=== PATIENT | male | born 1955 | race Caucasian/White ===

== ENCOUNTER → 2016-07-22 | Outpatient (CLI) | payer OTHER ==
[~2016-07-22] MED LIST: ACTOS30 MG PO; HYDROCODONE BIT1 T11 PO; LIPITOR10 MG PO; METFORMIN500 MG PO; MOTRIN800 MG PO
== END | disposition home or self-care (01) ==
LOC: RAD 15:57
DX: Z01.818 Encounter for other preprocedural examination (principal); J81.1 Chronic pulmonary edema; R06.00 Dyspnea, unspecified; Z96.642 Presence of left artificial hip joint

== ENCOUNTER → 2017-03-26 | Outpatient (CLI) | payer OTHER ==
[~2017-03-26] MED LIST changes: +ASPIRIN81 M1 PO; +COREG6.25 MG PO; +ENTRESTO 49 MG1 EACH PO; +INVOKANA300 M1 PO; +JANUVIA100 MG PO; +Motrin,Rufen800 MG PO
[2017-03-26 13:09] LABS: ACT PARTIAL THROMBO TIME 22.5 SECONDS (20.8-31.5)
== END ==
LOC: LAB 10:14
PROVIDERS: Orthopaedic Surgery
DX: M16.12 Unilateral primary osteoarthritis, left hip (principal); R79.1 Abnormal coagulation profile; Z96.642 Presence of left artificial hip joint

== ENCOUNTER → 2017-03-26 | Outpatient (CLI) | payer OTHER ==
[~2017-03-26] VITALS: Ht 172.7 cm; Wt 94.3 kg
[2017-03-26 11:05] VITALS: BP 156/85
== END | disposition home or self-care (01) ==
LOC: SDC 10:15 → RAD 10:22 → SDC 04-02 01:24 → EDSTATUS 04-02 10:15 → SDC 04-02 10:15
DX: Z01.818 Encounter for other preprocedural examination (principal); M16.12 Unilateral primary osteoarthritis, left hip

== ENCOUNTER → 2023-03-19 | Outpatient (CLI) | payer MEDICARE, OTHER | END | disposition home or self-care (01) | LOC: CARD 00:13 | PROVIDERS: ATTEND Internal Medicine Cardiovascular Disease | DX: I42.8 Other cardiomyopathies (principal) ==

== ENCOUNTER 2024-08-28 23:26 | Emergency (ER) | payer OTHER ==
[~2024-08-28] VITALS: Ht 177.8 cm; Wt 85.5 kg
[2024-08-29 00:05] LABS: BASO # 0.1 10*3/uL (0.0-0.1); BASO % 1.5 % (0.0-1.0); EOS # 0.2 10*3/uL (0.0-0.4); EOS % 1.9 % (1.0-4.0); HEMATOCRIT 34.4 % (42.0-52.0); MEAN CELL VOLUME 92.2 fl (80.0-94.0); MEAN CORPUSCULAR HGB CONC 32.6 g/dl (33.0-37.0); MEAN PLATELET VOLUME 8.4 fl (9.6-12.3); MONO # 1.2 10*3/uL (0.1-1.0); MONO % 13.2 % (3.0-9.0); NEUT # 4.9 10*3/uL (2.3-7.9); NEUT % 55.5 % (47.0-73.0); PLATELET COUNT AUTOMATED 319 10*3/uL (130-400); RED BLOOD COUNT 3.73 10*6/uL (4.50-5.90); RED CELL DISTRI WIDTH 13.8 % (0-14.5); WHITE BLOOD COUNT 8.8 10*3/uL (4.8-10.8)
[2024-08-29 00:37] LABS: POTASSIUM 3.8 mmol/L (3.4-5.1); TOTAL PROTEIN 6.9 gm/dL (6.0-8.0)
[2024-08-29 00:39] LABS: ETHYL ALCOHOL 300.4 mg/dl (<3)
== END 2024-08-29 03:25 | disposition home or self-care (01) ==
LOC: ED 23:26
PROVIDERS: Emergency Medicine
DX: S00.81XA Abrasion of other part of head, initial encounter (principal); F10.129 Alcohol abuse with intoxication, unspecified; Z79.82 Long term (current) use of aspirin; Z79.899 Other long term (current) drug therapy; Y90.9 Presence of alcohol in blood, level not specified; W18.39XA Other fall on same level, initial encounter; Y93.89 Activity, other specified; Y92.89 Other specified places as the place of occurrence of the external cause; Y99.8 Other external cause status